=== PATIENT | female | born 1980 ===

== ENCOUNTER 2017-01-19 08:53 | Emergency (ER) | payer OTHER ==
[2017-01-19 09:01] VITALS: O2SAT 99
[2017-01-19] MEDS ORDERED: Naproxen 550 mg Tab PO STA (09:23)
--- NOTE | 2017-01-19 09:26 | C.PDOC ---
History Of Present Illness 36-year-old female, presents to the emergency department with complaints of pain to right hand for the past week, that is associated with tingling. 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 Denies any direct trauma/injury, swelling, change in color or any other associated symptoms. No neck pain or trauma. Time Seen by Provider: 01/19/17 09:05 Chief Complaint (Nursing): Finger,Hand,&Wrist History Per: Patient, Ribber History/Exam Limitations: no limitations Onset/Duration Of Symptoms: Days Current Symptoms Are (Timing): Still Present Past Medical History Reviewed: Historical Data, Nursing Documentation, Vital Signs Vital Signs: Last Vital Signs Temp 98.3 F 01/19/17 09:40 Pulse 55 L 01/19/17 09:40 Resp 12 01/19/17 09:40 BP 115/79 01/19/17 09:40 Pulse Ox 99 01/19/17 12:33 Family History: States: No Known Family Hx - Social History Hx Alcohol Use: No Hx Substance Use: No - Immunization History Hx Tetanus Toxoid Vaccination: No Hx Influenza Vaccination: No Hx Pneumococcal Vaccination: No Review Of Systems Constitutional: Negative for: Fever, Chills Gastrointestinal: Negative for: Nausea, Vomiting Musculoskeletal: Positive for: Hand Pain (right) Neurological: Negative for: Weakness, Numbness Physical Exam - Physical Exam Appears: Non-toxic, No Acute Distress Skin: Warm, Dry, No Rash Head: Atraumatic, Normacephalic Eye(s): bilateral: Normal Inspection, EOMI Nose: Normal Oral Mucosa: Moist Lips: Normal Appearing Neck: Normal ROM Chest: Symmetrical Respiratory: No Accessory Muscle Use Extremity: Normal ROM, Capillary Refill (<2 seconds), No Deformity, No Swelling , Other (Right hand: No swelling. No tenderness. No change in color. (+) tinel sign) Extremity: Bilateral: Atraumatic, Normal Color And Temperature, Normal ROM Pulses: Left Radial: Normal, Right Radial: Normal Neurological/Psych: Oriented x3, Normal Speech, Normal Motor (5/5 strength), Normal Sensation ((+) median and ulna) ED Course And Treatment O2 Sat by Pulse Oximetry: 99 Progress Note: Wrist immobilizer applied. Instructed RICE and follow up with ortho in 1-2 days. Disposition - Disposition Referrals: [facility] [Outside] Disposition: HOME/ ROUTINE Disposition Time: 09:24 Condition: STABLE Additional Instructions: Follow up with the clinic in 2-5 days for further evaluation. Take medications as prescribed. Return to the emergency department at any time if symptoms persist or worsen. [facility] for any assistance [phone]. Prescriptions: Naproxen [Naprosyn] 1 tab PO BID PRN #20 tab PRN Reason: Pain Instructions: Carpal Tunnel Syndrome (ED) Forms: Work Excuse Print Language: HAITIAN - Clinical Impression Clinical Impression: Right wrist tendonitis - Scribe Statement The provider has reviewed the documentation as recorded by the Scribe (Rito Colon) All medical record entries made by the Scribe were at my direction and personally dictated by me. I have reviewed the chart and agree that the record accurately reflects my personal performance of the history, physical exam, medical decision making, and the department course for this patient. I have also personally directed, reviewed, and agree with the discharge instructions and disposition.
[2017-01-19] MEDS ORDERED: Naproxen 550 mg Tab PO ONE (09:29)
[2017-01-19 09:47] VITALS: BP 115/79; PULSE 55; RESP 12; TEMP 98.3
== END 2017-01-19 09:52 | disposition home or self-care (01) ==
LOC: C.ER 08:53
DX: M77.9 Enthesopathy, unspecified (principal)

== ENCOUNTER 2017-03-27 09:40 | Emergency (ER) | payer OTHER ==
[2017-03-27 09:47] VITALS: BP 117/77; PULSE 100; RESP 18; TEMP 101; O2SAT 100
--- NOTE | 2017-03-27 10:29 | C.PDOC ---
History Of Present Illness 36 y/o female presents to ED with complaints of fever and itchy rash that developed 2 days ago with associated sore throat. Patient reports she is from [place] and is not immunized and works in a restaurant. Patient denies sick contacts, abdominal pain, recent travel or any other complaints at this time. Time Seen by Provider: 03/27/17 10:08 Chief Complaint (Nursing): Abnormal Skin Integrity History Per: Patient History/Exam Limitations: no limitations Onset/Duration Of Symptoms: Days Current Symptoms Are (Timing): Still Present Quality Of Symptoms: Painful, Itching Past Medical History Reviewed: Historical Data, Nursing Documentation, Vital Signs Vital Signs: Last Vital Signs Temp 101 F H 03/27/17 09:43 Pulse 100 H 03/27/17 09:43 Resp 18 03/27/17 09:43 BP 117/77 03/27/17 09:43 Pulse Ox 100 03/27/17 12:40 Surgical History: No Surg Hx Family History: States: No Known Family Hx - Social History Hx Alcohol Use: No Hx Substance Use: No - Immunization History Hx Tetanus Toxoid Vaccination: No Hx Influenza Vaccination: No Hx Pneumococcal Vaccination: No Review Of Systems Except As Marked, All Systems Reviewed And Found Negative. Constitutional: Positive for: Fever Cardiovascular: Negative for: Chest Pain Respiratory: Negative for: Cough, Shortness of Breath Musculoskeletal: Negative for: Back Pain Skin: Positive for: Rash Physical Exam - Physical Exam Appears: Non-toxic, No Acute Distress Skin: Warm, Dry, Rash (punctate dispersed lesion through body, Erythematous ) Head: Atraumatic, Normacephalic Eye(s): bilateral: Normal Inspection Oral Mucosa: Moist Tongue: Normal Appearing, No Swelling Lips: Normal Appearing, No Swelling Throat: Normal, No Erythema Chest: Symmetrical Cardiovascular: Rhythm Regular, No Murmur Respiratory: Normal Breath Sounds, No Rales, No Rhonchi, No Wheezing Neurological/Psych: Oriented x3 ED Course And Treatment O2 Sat by Pulse Oximetry: 100 (RA) Pulse Ox Interpretation: Normal Medical Decision Making Medical Decision Making: Plan: Varicella IGM sent for confirmation Patient was discharged and advised to call back Friday for results Disposition - Disposition Disposition: HOME/ ROUTINE Disposition Time: 10:26 Condition: STABLE Additional Instructions: Follow up with your doctor for confirmation of the disease. Prescriptions: Ibuprofen [Motrin] 600 mg PO TID #15 tab Instructions: Chickenpox (ED) Forms: Gen Discharge Inst South Korean, [facility] (South Korean), Work Excuse - POA Present On Arrival: None - Clinical Impression Clinical Impression: Chicken pox - Scribe Statement The provider has reviewed the documentation as recorded by the Scriboriana Caon All medical record entries made by the Scribe were at my direction and personally dictated by me. I have reviewed the chart and agree that the record accurately reflects my personal performance of the history, physical exam, medical decision making, and the department course for this patient. I have also personally directed, reviewed, and agree with the discharge instructions and disposition.
== END 2017-03-27 10:46 | disposition home or self-care (01) ==
LOC: C.ER 09:40
DX: B01.9 Varicella without complication (principal)